=== PATIENT | male | born 1995 | race Caucasian/White ===

== ENCOUNTER 2017-09-16 23:01 | Emergency (ER) | payer SELFPAY ==
[~2017-09-16] VITALS: Ht 182.9 cm; Wt 141.3 kg
[2017-09-16 23:06] VITALS: BP 140/95; PULSE 101; RESP 16; TEMP 99.2; O2SAT 96
--- NOTE | 2017-09-16 23:16 | PD ---
HPI Chief Complaint: Redness to calf Time Seen by Provider: 23:15 Travel History International Travel<30 days: No Contact w/Intl Traveler<30days: No Traveled to known affect area: No History of Present Illness HPI Patient states that he noted 2 days ago a redness and pimple-like lump to his left calf. Patient denies any associated factors such as head pain, fever, nausea, vomiting, cough, sore throat, runny nose, chest pain, flank pain, back pain or abdominal pain. Patient denies any alleviating or aggravating factors. Patient denies any known drug allergy Patient denies any significant medical or surgical history other than adenoid and tonsillectomy PFSH Social History Tobacco Use: No Review of Systems General / Constitutional: No: Fever Eyes: No: Visual changes HENT: No: Headaches Cardiovascular: No: Chest Pain or Discomfort Respiratory: No: Shortness of Breath Gastrointestinal: No: Abdominal Pain Genitourinary: No: Dysuria Musculoskeletal: No: Pain Skin: Positive Lumps Neurologic: No: Weakness Psychiatric: No: Depression Endocrine: No: Polydipsia Hematologic/Lymphatic: No: Easy Bruising Physical Exam Narrative GENERAL: SKIN: Warm and dry. On left posterior calf, proximally at the gastrocnemius lateral head the patient has 2 discrete 3 cm diameter erythematous indurated but nonfluctuant lesions. Not actively draining. HEAD: Atraumatic. Normocephalic. EYES: Pupils equal and round. No scleral icterus. No injection or drainage. ENT: No nasal bleeding or discharge. Mucous membranes pink and moist. NECK: Trachea midline. No JVD. CARDIOVASCULAR: Regular rate and rhythm. RESPIRATORY: No accessory muscle use. Clear to auscultation. Breath sounds equal bilaterally. GASTROINTESTINAL: Abdomen soft, non-tender, nondistended. Hepatic and splenic margins not palpable. MUSCULOSKELETAL: Extremities without clubbing, cyanosis, or edema. No obvious deformities. NEUROLOGICAL: Awake and alert. No obvious cranial nerve deficits. Motor grossly within normal limits. Five out of 5 muscle strength in the arms and legs. Normal speech. PSYCHIATRIC: Appropriate mood and affect; insight and judgment normal. Data Data Last Documented VS Vital Signs Date Time Temp Pulse Resp B/P (MAP) Pulse Ox O2 Delivery O2 Flow Rate FiO2 18 23:06 99.2 101 16 140/95 (110) 96 MDM Medical Decision Making Medical Screen Exam Complete: Yes Emergency Medical Condition: Yes Medical Record Reviewed: Yes Differential Diagnosis Cellulitis versus abscess versus lymphangitis Narrative Course Clinically the patient cellulitis without any evidence of abscess or lymphangitis. Patient will be given IM dose of clindamycin before discharging Diagnosis Primary Impression: Left posterior calf cellulitis Patient Instructions: Cellulitis (ED), General Instructions Scripts Sulfamethoxazole-Trimethoprim (Bactrim DS) 800-160 Mg Tab 1 TAB PO BID for Infection, #20 TAB 0 Refills Prov: Julio Parra MD 09/16/17 Disposition: DISCHARGE HOME Condition: Stable Julio Parra MD Sep 16, 2017 23:16
[2017-09-16] MEDS ORDERED: BACT800T5 PO (23:25)
[2017-09-16] MEDS ORDERED: CLINDAMYCIN PHOS 300 MG/2 ML VIAL IM ONE (23:30)
[2017-09-17 00:06] VITALS: BP 121/69; TEMP 99.1
== END 2017-09-17 00:09 | disposition home or self-care (01) ==
LOC: PHED 23:01
DX: L03.116 Cellulitis of left lower limb (principal)
CPT/HCPCS: 99283